=== PATIENT | male | born 1965 | race Caucasian/White ===

== ENCOUNTER 2019-07-29 11:56 | Day surgery (SDC) | payer OTHER ==
[2019-07-29] MEDS ORDERED: PROPOFOL 200 MG INJ (14:00)
[2019-07-29] MEDS ORDERED: PROPOFOL 20 ML (14:09)
[2019-07-29] MEDS ORDERED: FENTAnyl 50 MCG/ML VIAL (14:09)
[2019-07-29] MEDS ORDERED: LIDOCAINE 2% (SDV) 5 ML INJ (14:09)
[2019-07-29] MEDS ORDERED: MIDAZOLAM 1 MG/ML 2 ML INJ (14:09)
== END 2019-07-29 15:29 | disposition home or self-care (01) ==
LOC: GIL 11:56
DX: Z12.11 Encounter for screening for malignant neoplasm of colon (principal); K57.30 Diverticulosis of large intestine without perforation or abscess without bleeding
CPT/HCPCS: 45378; 82962